=== PATIENT | male | born 1995 | race Caucasian/White ===

== ENCOUNTER 2024-11-25 11:23 | Emergency (ER) | payer BC, SELFPAY ==
[2024-11-25 12:12] VITALS: BP 140/84
--- NOTE | 2024-11-25 12:12 | ED.MUSCINJ ---
HPI-Injury
<Marge Vargas LEI MAKER - Last Filed: 11/25/24 12:17>
General
Chief Complaint: Fall
Time Seen by Provider: 11/25/24 13:28
<Sharath Marquez PA-C - Last Filed: 11/25/24 14:20>
General
Source: patient
Exam Limitations: none
History of Present Illness-Injury
Initial Injury comments:
29-year-old male leaving a bar last evening tripped and fell forward hitting his face on concrete. No loss of conscious. Slight headache. He notes he is fatigue. He also notes swelling and bruising and pain to the nose. He is not
anticoagulated. He denies any neck pain. No other complaints at this time
ED Provider Triage
<Marge Vargas LEI MAKER - Last Filed: 11/25/24 12:17>
-
Patient seen by provider in Triage?: Seen in Triage
Attestation: A medical screening examination has been initiated by a qualified medical provider. Based on the assessment performed at this time, it has been determined that an emergent medical condition may exist and the patient has been informed
that further medical evaluation and possible additional diagnostic testing may be needed.
HPI: 29-year-old male states he [place] the city, face hit a metal grate in the street where he fell. Denies loss of consciousness. Mild nausea, no vomiting. Feels mildly dizzy. 'A little confused.'Denies neck pain. Unsure of last
Tdap.
GENERAL: Alert , in no apparent distress
EYE: No visual abnormalities.
NECK: Trachea midline
ENT: No visible abnormalities.
LUNGS: No acute respiratory distress
NEUROLOGICAL: Alert and oriented
SKIN: Deep clean abrasions nose, mid forehead.
MUSCULOSKELETAL: Moving extremities normally. No spinal bony tenderness.
PSYCH: Normal and appropriate interaction.
This is a medical evaluation conducted in person to initiate diagnostic evaluation and provide initial therapeutics. Please see further documentation by the treating clinician.
Phy Exam
<Sharath Marquez PA-C - Last Filed: 11/25/24 14:20>
Physical Exam
Physical Exam:
General: Well-appearing male no acute respiratory distress
HEENT: Normocephalic abrasion with hematoma noted to the mid forehead. There is also abrasion and swelling noted to the bridge of the nose. Pupils equal round react light extraocular's are intact facial bones are nontender except for the nasal
bones. Dentition appears well
Musculoskeletal exam: Cervical spine is nontender
Neurologic exam: Alert and oriented finger-nose intact normal gait conversing appropriately
Injury Course
<Marge Vargas LEI MAKER - Last Filed: 11/25/24 12:17>
Orders/Labs/Results
Orders:
Orders
11/25/24 12:13
Tetanus/Diphth/Acelpertussis [Adacel] 0.5 ml IM .ONCE ONE
11/25/24 12:14
Facial Bones wo Contrast CT [CT Facial Bones W/o Iv Contras] Urgent
Comment:
Reason For Exam: face planted, mid forehead and nose swelling/pain
11/25/24 12:16
CT Head W/o Iv Contrast Urgent
Comment:
Reason For Exam: face planted, facial injuries, dizzy, nausea
11/25/24 13:35
Acetaminophen [Tylenol] 650 mg PO NOW STA
11/25/24 13:36
Acetaminophen [Tylenol] 650 mg .ROUTE .STK-MED ONE
<Sharath Marquez PA-C - Last Filed: 11/25/24 14:20>
Orders/Labs/Results
Orders:
Orders
11/25/24 12:13
Tetanus/Diphth/Acelpertussis [Adacel] 0.5 ml IM .ONCE ONE
11/25/24 12:14
Facial Bones wo Contrast CT [CT Facial Bones W/o Iv Contras] Urgent
Comment:
Reason For Exam: face planted, mid forehead and nose swelling/pain
11/25/24 12:16
CT Head W/o Iv Contrast Urgent
Comment:
Reason For Exam: face planted, facial injuries, dizzy, nausea
11/25/24 13:35
Acetaminophen [Tylenol] 650 mg PO NOW STA
11/25/24 13:36
Acetaminophen [Tylenol] 650 mg .ROUTE .STK-MED ONE
<Sharath Marquez PA-C - Last Filed: 11/25/24 14:20>
MDM/Problems Addressed
Differential Diagnosis Includes:
Given follow-up with facial and head injury. Consider contusion dorsalis concussion for skull fracture or intracranial hemorrhage
CT of the face and head pending. Tylenol ordered for discomfort.
<Sharath Marquez PA-C - Last Filed: 11/25/24 14:20>
*Critical Care Note
Total Time (30-74mins, 75-104mins- exclusive of procedures): Not Applicable
<Sharath Marquez PA-C - Last Filed: 11/25/24 14:20>
Update Note
Update Note:
CTs were reviewed and demonstrate bilateral nondisplaced nasal bone fractures but no intracranial injuries. Patient reassured. Recommended ice Tylenol ibuprofen and rest. Concussion precautions were given. Stable for discharge
ED Attending Note
<Marge Vargas, LEI MAKER - Last Filed: 11/25/24 12:17>
-
Portions of this chart may have been created with voice recognition software.� Occasional wrong word or��sound alike� substitutions may have occurred due to the inherent limitations of voice recognition software.
Discharge Plan
Departure
Patient Disposition: Home (Routine Discharge)
Date of Disposition: 11/25/24
Time of Disposition: 14:11
Patient with high blood pressure during this ER visit?: No
Discharge Problem:
Fracture of nasal bone
Instructions: Nose fracture, Concussion, Adult (DC)
Activity Restrictions/Additional Instructions:
You may use ibuprofen or Tylenol for pain. Ice to the sore spots. Rest. Return to activities in a slow stepwise fashion as tolerated
Interventions
Interventions:
*Risk Screen - Suicide Last Done: 11/25/24 12:12
*General Assessment Last Done: 11/25/24 12:12
*Neglect/Abuse Screening Last Done: 11/25/24 12:12
ED- Fall Risk Assessment Last Done: 11/25/24 13:33
ED-Musculoskeletal Assessment Last Done: 11/25/24 13:32
ED- Neurological Assessment Last Done: 11/25/24 13:32
ED-Skin Assessment Last Done: 11/25/24 13:45
Discharge Date and Time
Print Language: MONTENEGRIN
[2024-11-25] MEDS: ADACEL 0.5 ML IM (13:37)
[2024-11-25] MEDS: TYLENOL 650 MG PO (13:37)
== END 2024-11-25 14:34 | disposition home or self-care (01) ==
LOC: EMR 11:23
PROVIDERS: EMERGENCY PHYSICIAN Emergency Medicine
DX: S02.2XXA Fracture of nasal bones, initial encounter for closed fracture (principal); S00.31XA Abrasion of nose, initial encounter; S00.83XA Contusion of other part of head, initial encounter; W01.0XXA Fall on same level from slipping, tripping and stumbling without subsequent striking against object, initial encounter; Z23 Encounter for immunization
CPT/HCPCS: 90471; 99284; 70450; 70486; 90715